=== PATIENT | female | born 1985 | race Caucasian/White ===

== ENCOUNTER 2016-06-29 10:02 | Emergency (ER) | payer MEDICAID, OTHER ==
[~2016-06-29] VITALS: Ht 167.6 cm; Wt 68.2 kg
[2016-06-29 10:09] VITALS: BP 108/71; PULSE 81; RESP 16; O2SAT 95
--- NOTE | 2016-06-29 10:49 | ED.REPORT ---
HPI-General Illness Date of Service Jun 29, 2016 ED Provider: Dr. Alston Pt is a 31 y/o female w/ a hx of kidney stones presenting to the ED c/o LLQ abdominal pain with radiation to the L flank onset 3 days ago. She c/o associated dysuria, decreased urination, headache which she attributes to being started on Paxil recently which was not relieved with Excedrin. She has had kidney stones previously and this pain is similar. She denies fever, chills, vomiting. Her last kidney stone required lithotripsy treatment and since then she has had left flank pain. Her story is rambling and she has a difficult time explaining why she came to the hospital. Per POLY report, patient was at [facility] this morning under a different name and patient uses an alias. Nursing Notes Stated Complaint: ABDOMINAL PAIN,BLOODY URINE,UNABLE TO PEE,MIGRAINE Chief Complaint: Female Abdominal Pain Nursing Notes Reviewed: Yes Allergies: Coded Allergies: haloperidol (Verified Allergy, Severe, hallucinated, 07/14/15) promethazine (Verified Allergy, Severe, hives , EPS, 09/19/15) Uncoded Allergies: KETAMINE (Adverse Reaction, Unknown, pt states she hallucinated..., 06/11/15 ) pt was given haldol and ketamine together and pt.. stated she had severe hallucinations.. Scheduled Sulfamethoxazole/Trimeth 800-160 mg (Bactrim DS 800-160 mg) 1 Each Tablet 1 TABLET PO BID General Time Seen by MD: 10:48 Chief Complaint Abdominal pain Hx Obtained From: Patient Arrived By: Walk-in Sudden in Onset?: No Onset Occurred: 3 days ago Symptom Duration: Since onset Location: : Abdomen Quality: Painful Severity: Current: Moderate Severity: Maximum: Moderate Recent Healthcare: Previous diagnosis Similar Sx Previous: Yes Past Medical History Past Medical History Endometriosis Kidney stones Past Surgical History Ear tubes Lithotripsy Reports: Cholecystectomy Family History noncontributory Smoking History Former Smoker Social History Alcohol Use: Denies alcohol use Drug Use: Denies drug use Other Social History: Frequent ED visitor, Local resident Occupation lives with boyfriend Ambulatory Status Independent Review of Systems Full Review of Systems Constitutional: Denies: Chills, Fever Respiratory: Denies: Non-productive cough, Shortness of breath Cardiovascular: Denies: Chest pain, Dyspnea on exertion GI: Reports: Abdominal pain Female: Reports: Dysuria, Flank pain, Urination decreased Neurologic: Reports: Headache, Denies: Focal weakness, Numbness Complete sys rev & neg: except as marked. Physical Exam Vital Signs Vital Signs Date Time Temp Pulse Resp B/P Pulse Ox O2 Delivery O2 Flow Rate FiO2 06/29/16 10:09 36.6 81 16 108/71 95 Room Air Initial VS: Reviewed, Vital signs normal Head / Eyes: Atraumatic, Normocephalic, PERRL ENT: Mucous membranes moist, Conjunctiva normal, No scleral icterus Neck: Supple, Full range of motion Respiratory: Breath sounds normal, Clear to auscultation, No respiratory distress Cardiovascular: Regular rate & rhythm, Heart sounds normal, Intact distal pulses Extremities: Vascular intact, Neuro intact, No swelling, No tenderness Skin: Warm, Dry, No cyanosis Neurologic: Alert, Oriented, Nonfocal General/Constitutional: Awake, Alert, Cooperative, Not toxic appearing Appearance / Presentation: Positive: Uncomfortable Abdomen: Atraumatic, Soft, No guarding, No rebound, No distention, No palpable mass Tenderness/Guarding/Rebound: Positive: Tender LLQ... (Mild), Tender suprapubic (mild) Psychiatric: Cognitive function NL Odd affect Interpretation & Diagnostics Interpretation & Diagnostics: CT KUB: IMPRESSION: 1. No rigors stones or hydronephrosis. No CT findings to explain left flank pain. 2. Small 3-4 mm subpleural groundglass nodules in the left lung base, unchanged since06/06/15. Please see followup instructions. Fleischner Society criteria for SUB-SOLID lung nodule followup. Solitary pure ground-glass nodules5 mm or lessNo followup needed. >5 mm3 mo follow-up CT to confirm persistence. Then annual CT for 3 years. Part-solid nodules3 mo follow-up CT to confirm persistence. If persistent with solid component <5 mm, annual CT for at least 3 years. If solid component is 5 mm or more, biopsy or surgical resection. Consider PET-CT for lesions > 10 mm. Multiple sub-solid nodulesPure ground glass nodules [address] at 2 and 4 years. Pure ground glass nodules >5 mm without dominant lesion. [address] to confirm persistence, then annual followup CT for at least 3 years. Dominant nodule(s) with part-solid or solid component. [address] to confirm persistence. If persistent, consider biopsy or surgical resection, carla if lesions have >5 mm solid component. Dictated by: Jesus Ng M.D. on 06/29/2016 at 11:46 Approved by: Jesus Ng M.D. on 06/29/2016 at 11:56 Re-Eval/Medical Decision Med Decision/Clinical Course Patient essentially presents with dysuria and saying she cannot urinate, her bladder scan was normal, her story is rambling and her explanations are tangential. She does have evidence of urinary tract infection on her UA, CT KUB was performed and unremarkable. She will be treated with Bactrim. I do not suspect any emergent medical condition. Return precautions given. Time of Eval: 12:23 Re-Evaluation/Progress Note: Pt rechecked. Informed pt of plan for treatment. Pt understands and agrees with plan for treatment. F/U and RTER warnings given. All questions addressed. Counseled Regarding: Diagnosis, Lab results, Need for follow-up, When/why to return to ED Discharge & Departure Primary Impression: Abdominal pain Abdominal location: unspecified location Qualified Code: R10.9 - Unspecified abdominal pain Additional Impression: UTI (urinary tract infection) Urinary tract infection type: site unspecified Hematuria presence: without hematuria Qualified Code: N39.0 - Urinary tract infection, site not specified Disposition: Home Discharge Condition All VS Reviewed: Yes Condition: Stable Patient Instructions: Acute Abdominal Pain (ED) Additional Instructions: Your CT scan showed no signs of kidney stones or other acute abnormalities. There was a small lung nodule found that was unchanged in size from a previous scan. You have a UTI. Take 600 mg Ibuprofen every 6 hours as needed for pain. Return to the emergency department if you experience severe uncontrolled pain, persistent vomiting, high fever, or for other concerning symptoms. Follow-up with your primary care doctor later this week to discuss today's visit and findings. Referrals: [facility] Scribe Attestation Portions of this note were transcribed by Junior Burkett. I, Dr. Alston personally performed the history, physical exam and medical decision-making; I reviewed and confirmed the accuracy of the information in the transcribed note. Signed by Maame Mack, 06/29/16 - 1099 Kevin Alston DO Jun 29, 2016 10:49 JUNIOR BURKETT Jun 29, 2016 10:51
[2016-06-29] MEDS ORDERED: Ondansetron 8 mg ODT Tablet PO ONE (11:05)
[2016-06-29] MEDS ORDERED: Ketorolac 30 mg/mL 2 mL Inj IM ONE (11:05)
--- NOTE | 2016-06-29 11:58 | DRSVH ---
PROCEDURE: CT KUB ([id number]) INDICATIONS: left flank pain TECHNIQUE: Noncontrast 5 mm thick sections acquired from the diaphragms to the symphysis. 5 mm thick coronal an d sagittal reformats were then performed. For radiation dose reduction, the following was used: aut omated exposure control, adjustment of mA and/or kV according to patient size. COMPARISON: [facility], CT, ABD/PELVIS W/CON (PNL), 07/05/2011, 4:38. [facility], CT, CT CHEST ABD PELVIS W CON, 06/06/2015, 18:51. [facility], CT, CT ABD PELVIS W C ON, 07/14/2015, 21:39. FINDINGS: Image quality: Excellent. Lung bases: There are several small 3-4 mm subpleural groundglass nodules in the left lower lobe (ser ies 3 image 3 and 6), unchanged from 06/06/2015. Bilateral dependent atelectasis. Heart size is lien l. Urinary system: Both kidneys are normal in size. No kidney stones. No hydronephrosis or perinephri c fat stranding. Both ureters appear non-dilated throughout their expected courses. Bladder wall th ickness is normal; no calcified bladder stones. Other solid organs: Liver and spleen are normal in size. Gallbladder is is removed. Pancreas is no rmal in contours. No adrenal nodules. Peritoneum and bowel: Unenhanced bowel loops demonstrate normal wall thickness and caliber. Appendi x is normal. No free fluid or air. Nodes and vessels: No retroperitoneal or mesenteric adenopathy by size criteria. Aorta and inferior vena cava are normal in caliber. Abdominal wall: No ventral hernias. Pelvis: No free pelvic fluid. No inguinal hernias or adenopathy. There is an IUD in uterus. Bones: No suspicious bony lesions. No vertebral body compression fractures. IMPRESSION: 1. No rigors stones or hydronephrosis. No CT findings to explain left flank pain. 2. Small 3-4 mm subpleural groundglass nodules in the left lung base, unchanged since/06/06/15. Please see followup instructions. Fleischner Society criteria for SUB-SOLID lung nodule followup. Solitary pure ground-glass nodules5 mm or lessNo followup needed. >5 mm3 mo follow-up CT to confirm persistence. Then annual CT for 3 years. Part-solid nodules3 mo follow-up CT to confirm persistence . If persistent with solid component <5 mm, annual CT for at least 3 years. If solid component is 5 mm or more, biopsy or surgical resection. Consider PET-CT for lesions > 10 mm. Multiple sub-solid nodulesPure ground glass nodules [address] at 2 and 4 years. Pure ground glass nodules >5 mm without dominant lesion. [address] to confirm persistence, then annual followup CT for at least 3 years. Dominant nodule(s) with part-solid or solid component. [address] to confirm persistence. If persistent, consider biopsy or surgical resection, carla if lesions have >5 m m solid component. Dictated by: Jesus Ng M.D. on 06/29/2016 at 11:46 Approved by: Jesus Ng M.D. on 06/29/2016 at 11:56
[2016-06-29] MEDS ORDERED: Trimethoprim-Sulfa 160 mg-800 mg Tablet PO ONE (12:20)
[2016-06-29] MEDS ORDERED: SULF1TAB35 PO (12:20)
== END 2016-06-29 12:49 | disposition home or self-care (01) ==
LOC: SED 10:02
DX: N39.0 Urinary tract infection, site not specified (principal); R51 Headache; Z87.442 Personal history of urinary calculi; Z98.890 Other specified postprocedural states; Z87.891 Personal history of nicotine dependence; Z88.5 Allergy status to narcotic agent; Z88.8 Allergy status to other drugs, medicaments and biological substances
CPT/HCPCS: 74176; 81025; 96372; 99285; J1885